=== PATIENT | male | born 1975 | race Caucasian/White ===

== ENCOUNTER → 2016-08-02 | Outpatient (CLI) | payer SELFPAY ==
[~2016-08-02] MED LIST: LYRICA150 MG PO; PERCOCET 5-3251 EACH PO; ZYRTEC10 MG PO
== END ==
LOC: KOH-I 14:29
DX: M54.2 Cervicalgia (principal); M54.9 Dorsalgia, unspecified; M47.812 Spondylosis without myelopathy or radiculopathy, cervical region
CPT/HCPCS: 72040; 72080

== ENCOUNTER → 2016-08-29 | Outpatient (CLI) | payer OTHER | LOC: EMI 09:15 | DX: M54.2 Cervicalgia (principal); M99.31 Osseous stenosis of neural canal of cervical region; M50.222 Other cervical disc displacement at C5-C6 level | CPT/HCPCS: 72141 ==